=== PATIENT | male | born 1980 | race African-American/Black ===

== ENCOUNTER 2025-01-02 12:10 | Day surgery (SDC) | payer BC, MEDICAID, SELFPAY ==
--- NOTE | 2024-12-30 07:53 | EKG_ITS ---
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
[2024-12-30 11:36] LABS: Basophils # (Auto) 0.0 Thou/mm3 (0.0-0.2); Basophils % (Auto) 2 % (0-2.5); Eosinophils # (Auto) 0.1 Thou/mm3 (0.0-0.5); Eosinophils % (Auto) 4 % (0-10); Hematocrit 43.4 % (41.0-53.0); Hemoglobin 14.9 g/dL (13.5-16.0); Immature Granulocytes Auto 0.00 Thou/mm3 (0.00-0.00); Lymphocytes # (Auto) 1.3 Thou/mm3 (1.0-4.8); Lymphocytes % (Auto) 47 % (10-50); Mean Corpuscular HGB Conc 34.3 g/dl (31.0-37.0); Mean Corpuscular Hemoglobin 30.2 pg (25.0-35.0); Mean Corpuscular Volume 88 fL (80-100); Monocytes # (Auto) 0.3 Thou/mm3 (0.0-0.8); Monocytes % (Auto) 12 % (0-12); Neutrophils # (Auto) 0.9 Thou/mm3 (1.8-7.7); Neutrophils % (Auto) 35 % (37-80); Nucleated Red Blood Cell # 0.00 Thou/mm3 (0.00-0.00); Nucleated Red Blood Cell % 0 /100 WBC (0); Platelet Count 289 Thou/mm3 (140-440); RDW Standard Deviation 41.5 fL (35.1-43.9); Red Blood Count 4.93 Miln/mm3 (4.50-5.90); White Blood Count 2.7 Thou/mm3 (3.8-10.6)
[2024-12-30 11:43] LABS: INR 1.0 (0.9-1.3); Partial Thromboplastin Time 26.5 Seconds (22.0-36.0); Prothrombin Time 10.7 Seconds (9.0-12.2)
[2024-12-30 11:44] LABS: Alanine Aminotransferase 39 U/L (10-49); Albumin, Serum 4.8 gm/dL (3.5-5.0); Albumin/Globulin Ratio 1.5 (1.2-2.2); Alkaline Phosphatase 50 U/L (46-116); Anion Gap 9 (7-16); Aspartate Amino Transferase 38 U/L (0-34); BUN/Creatinine Ratio 10 Ratio (12-20); Bilirubin,Total 2.2 mg/dL (0.3-1.2); Blood Urea Nitrogen 13 mg/dL (9-23); Calcium 10.3 mg/dL (8.3-10.6); Calcium (Corrected) 10.3 mg/dL (8.5-10.1); Carbon Dioxide 28.8 mMol/L (20.0-31.0); Chloride 103 mMol/L (98-107); Creatinine (Component) 1.3 mg/dL (0.6-1.3); Globulin 3.1 gm/dL (2.3-3.5); Glucose 92 mg/dL (74-106); Osmolality,Calculated 281 (275-295); Potassium 4.4 mMol/L (3.4-5.1); Sodium 141 mMol/L (136-145); Total Protein 7.9 gm/dL (5.7-8.2); eGFR > 60 See Note
[2024-12-30 15:02] VITALS: BMI 21.1
[2025-01-02 12:44] VITALS: BP 110/84; PULSE 97; RESP 18; TEMP 37.6; O2SAT 98; BMI 21.4
[2025-01-02] MEDS: RINGERS LACTATED 1000 ML 1,000 ML 20 ML IV (13:26)
[2025-01-02 14:00] VITALS: BP 94/72; PULSE 85; RESP 16; TEMP 36.2; O2SAT 96
--- NOTE | 2025-01-02 14:00 | SUR.PHASEII ---
pt received from OR in recovery bay 5. pt asleep but responds to voice, breathing unlabored on 2l oxymask. v/s stable. report received from Ayla HUTCHINS.
[2025-01-02 14:05] VITALS: BP 112/78; PULSE 100; RESP 12; TEMP 36.2; O2SAT 97
[2025-01-02 14:10] VITALS: BP 109/72; PULSE 99; RESP 13; TEMP 36.2; O2SAT 97
[2025-01-02 14:15] VITALS: BP 96/81; PULSE 89; RESP 19; TEMP 36.2; O2SAT 98
[2025-01-02 14:30] VITALS: BP 128/74; PULSE 72; RESP 19; TEMP 36.2; O2SAT 99
--- NOTE | 2025-01-02 14:47 | SUR.PHASEII ---
pt awake and alert, breathing unlabored on room air. v/s stable. pt able to ambulate to wheelchair with steady gait. d/c instructions given with Bettie in room, all questions answered. pt d/c via wheelchair with all belongings.
== END 2025-01-02 14:47 | disposition home or self-care (01) ==
PROVIDERS: Anesthesiology; Referring Provider Surgery; Visit Provider Surgery
PROC: 0DJD8ZZ Inspection of Lower Intestinal Tract, Via Natural or Artificial Opening Endoscopic (ICD-10-PCS; CPT 45378; principal; 2025-01-02 13:00)
DX: Z12.11 Encounter for screening for malignant neoplasm of colon (principal); Z01.810 Encounter for preprocedural cardiovascular examination; E11.9 Type 2 diabetes mellitus without complications
CPT/HCPCS: 45378; 36415; 80053; 85025; 85610; 85730; 93005; A4649; J2250; J2704; J3010; J3490; J7120